=== PATIENT | female | born 1970 | race Two or more races ===

== ENCOUNTER 2016-06-08 22:24 | Emergency (ER) | payer OTHER ==
[~2016-06-08] VITALS: Ht 147.3 cm; Wt 68.0 kg
[2016-06-08 23:01] LABS: Basophils # (auto) 0.1 uL; Basophils % (auto) 0.9 % (0.0-2.0); DEFINITIVE VIEW TRANSMISSION; Eosinophils # (auto) 0.2 uL; Eosinophils % (auto) 2.5 % (0.0-7.0); Hematocrit 27.7 % (36.0-46.0); Hemoglobin 8.9 g/dL (12.2-16.2); Lymphocytes # (auto) 1.8 uL; Lymphocytes % (auto) 25.6 % (10.0-50.0); Mean Corpuscular Hgb Conc. 32.2 g/dL (32.0-36.0); Mean Corpuscular Volume 80.8 fL (80.0-100.0); Mean Platelet Volume 8.3 fL (7.4-10.4); Monocytes # (auto) 0.6 uL; Monocytes % (auto) 8.4 % (0.0-12.0); Neutrophils # (auto) 4.5 uL; Neutrophils % (auto) 62.6 % (37.0-80.0); Platelet Count (auto) 237 10^3/uL (140-450); Red Cell Distribution Width 18.9 % (11.6-16.0); White Blood Cell 7.1 10^3/uL (4.4-10.8)
[2016-06-09] MEDS ORDERED: HYDROmorphone HCL 2 MG/ML VL IM ONE (00:30)
[2016-06-09] MEDS ORDERED: ONDANSETRON HCL 4 MG/2 ML VIAL IM ONE (00:30)
[2016-06-09 03:10] VITALS: BP 147/72
[2016-06-09 04:05] LABS: BUN/Creatinine Ratio 7.7; Calcium 7.9 mg/dL (8.5-10.1)
[2016-06-09 04:06] LABS: Albumin 3.1 g/dL (3.4-5.0); Bilirubin, Total 0.2 mg/dL (0.2-1.0); Potassium 6.2 mmol/L (3.5-5.1); Total Protein 7.2 g/dL (6.4-8.2)
[2016-06-09] MEDS ORDERED: SODIUM POLYSTYRENE SULF 15GM/60ML SUSP PO ONE (04:45)
== END 2016-06-09 09:51 | disposition home or self-care (01) ==
LOC: ER 22:27
DX: S52.614A Nondisplaced fracture of right ulna styloid process, initial encounter for closed fracture (principal); E11.9 Type 2 diabetes mellitus without complications; I10 Essential (primary) hypertension; R07.89 Other chest pain; M79.604 Pain in right leg; V47.6XXA Car passenger injured in collision with fixed or stationary object in traffic accident, initial encounter; Y93.89 Activity, other specified; Y99.9 Unspecified external cause status; Y92.89 Other specified places as the place of occurrence of the external cause
CPT/HCPCS: 29125; 36415; 71010; 73110; 73630; 80053; 80320; 84132; 85025; 96372; 99285; J1170; J2405

== ENCOUNTER 2017-02-06 15:31 | Emergency (ER) | payer OTHER ==
[~2017-02-06] VITALS: Ht 157.5 cm; Wt 55.8 kg
[2017-02-06] MEDS ORDERED: SODIUM CHLORIDE 0.9% 500 ML IV ONE (15:53)
[2017-02-06] MEDS ORDERED: methylPREDNISolone SOD SUCC 125 MG/2 ML VL IV ONE (16:00)
[2017-02-06 19:55] VITALS: BP 93/46
== END 2017-02-06 19:51 | disposition home or self-care (01) ==
LOC: EDBD 15:31 → ER 15:37
DX: T78.40XA Allergy, unspecified, initial encounter (principal); I10 Essential (primary) hypertension; E11.9 Type 2 diabetes mellitus without complications; F17.210 Nicotine dependence, cigarettes, uncomplicated; X58.XXXA Exposure to other specified factors, initial encounter
CPT/HCPCS: 94761; 96361; 96374; 99284; J2930; J7040